=== PATIENT | male | born 1950 | race Caucasian/White ===

== ENCOUNTER 2018-01-04 08:37 | Day surgery (SDC) | payer BC, SELFPAY ==
[2018-01-04] VITALS (7 sets, daily range): BP systolic 130–141; BP diastolic 57–79; PULSE 58–68; RESP 14–16; TEMP 36–36.7; O2SAT 95–100; BMI 35.1
--- NOTE | 2018-01-04 | LES_PTH ---
PATIENT: ROXI WALSH LOC: [facility] – [place] U#:[id number] AGE/SX: 67/M ROOM: RE01/04/[address]: Dr. Jose Bowen MD : 1950 BED: DIS: 01/04/2018 SPEC #: [id number] RECD: 01/04/18 10:43 STATUS: BRITTANIE RENieves #: [id number] VALDO: 01/04/18 00:[address]: Jose Bowen DEPT: SURGICAL PATHOLOGY RECD BY: Neeta Martinez ENTERED: 01/04/18 15:13 SP TYPE: Lesion OTHR DR: Dr. Shahla Carlos MD Tissues: Skin of external ear, NOS Procedures: Frozen Section (charge) Surgery Specimen Level IV Frozen (no charge) HEADER OPERATION: Excision left ear lesion with frozen section and full thickness PRE-OP DIAGNOSIS: Left ear lesion TISSUE SUBMITTED: Left ear lesion sent for FS at 1040 FROZEN SECTION DIAGNOSIS Skin lesion of left ear, biopsy: Actinic change and solar elastosis. AM:nelson 01/04/18 MICROSCOPIC DIAGNOSIS Skin lesion, left ear, biopsy: Actinic keratosis and solar elastosis. Dermal chronic inflammation and focal foreign body giant cell reaction. Negative for malignancy. SJ:nelson 01/05/18 MICROSCOPIC DESCRIPTION Slides are reviewed. GROSS DESCRIPTION Received fresh for frozen section consultation labeled with the patient's name is a specimen designated left ear lesion. The specimen consists of a discoid fragment of pink-go excised skin measuring 5 mm in diameter and 0.1 cm in thickness. The specimen is inked, bisected and submitted in its entirety for frozen section consultation in one block. / AM:nelson 01/04/18 TC:5 CPT: 70199, 00007
[2018-01-04 09:16] LABS: Bedside Glucose 135 mg/dL (70-110)
[2018-01-04] MEDS: Mupirocin Ointment 22gm Tube 1 APPLIC (11:24)
--- NOTE | 2018-01-04 11:27 | PCM.DC ---
You will use the following diet at home:: No restrictions Your food should be the consistency of: Regular Discharge Activity: Return to Normal Activity Call your doctor if your incision/area has: Increased Pain/ Swelling Additional Dressing/Incision Instructions:: bactroban ointment to neck incision and ear graft three times daily. do not get graft wet for 5 days. after 5 days, may wash neck and ear with soap/water and pat dry Allergies/Adverse Reactions: Allergies No Known Allergies Allergy (Verified 12/28/17 09:06) Medications to take at Discharge Aspirin [Aspirin, Baby] 81 mg PO DAILY@0800 01/08/17 Atorvastatin Calcium [Lipitor] 10 mg PO QHS 01/08/17 Metformin HCl [Metformin HCl ER] 1,000 mg PO QHS 01/08/17 Metformin HCl [Metformin HCl ER] 500 mg PO DAILY 01/08/17 Ramipril 5 mg PO DAILY 01/08/17 Sitagliptin Phosphate [Januvia] 100 mg PO DAILY 01/08/17 Acetaminophen/Codeine #3 [Tylenol#3] 1 tab PO Q6H PRN PRN 4 Days #10 tab 01/04/18 The following prescriptions were given: Acetaminophen/Codeine #3 [Tylenol#3] 1 tab PO Q6H PRN PRN 4 Days #10 tab PRN Reason: Pain Primary Care Physician: Shahla Carlos MD [Primary Care Provider] - Please Follow Up With: Pedrito Bowen MD When: 1 week
--- NOTE | 2018-01-04 11:36 | OP.PCM_ITS ---
Problem List (1) Ear lesion Status: Chronic Report of Operation Date of Procedure: 01/04/18 Pre-Operative Diagnosis: left ear lesion Post-Operative Diagnosis: left ear lesion Surgery/Procedure Performed:: 1. excision left ear lesion, 8mm. 2. full thickness skin graft, 1 x 1 cm, left ear Type of Anesthesia:: Local MAC Specimen's removed: left ear lesion Estimated Blood Loss (mL): 1cc Description of Procedure: on the day of the procedure, after appropriate informed consent was obtained, the patient was brought to the operating room and placed in supine position on the operating table. he was placed under sedation and the ear/neck were injected with lidocaine/epinephrine. the ear was prepped and draped in sterile fashion. a pyramid lake blade was used to excise the 8mm lesion. this was sent for frozen section and was negative for carcinoma. the lesion defect was trimmed and the final defect after undermining was 1 x 1 cm. an elliptical incision was made in a left neck crease that measured 1.5 x 1cm. the donor site was undermined and closed with a combination of 3-0 vicryl and 5-0 fast gut. the graft was thinned and trimmed and laid into the defect. this was inset using a combination of 4-0 chromic and 5-0 fast gut. this included a through and through chromic stitch anchoring the pie-crusted graft. due to the size of the defect/graft, a bolster was not placed. mupirocin was placed on the incisions. the patient was awoken from anesthesia and transferred to the PACU in stable condition.
== END 2018-01-04 12:45 | disposition home or self-care (01) ==
LOC: SDC 08:39 → AC 08:41
PROVIDERS: Family Provider Family Medicine; PCP Family Medicine; Visit Provider Otolaryngology
PROC: (CPT 11441; principal; 2018-01-04 10:10)
DX: L57.8 Other skin changes due to chronic exposure to nonionizing radiation (principal); I10 Essential (primary) hypertension; Z79.82 Long term (current) use of aspirin; E78.00 Pure hypercholesterolemia, unspecified; E11.9 Type 2 diabetes mellitus without complications; Z85.828 Personal history of other malignant neoplasm of skin; Z79.84 Long term (current) use of oral hypoglycemic drugs; Z79.899 Other long term (current) drug therapy
CPT/HCPCS: 11441; 15260; 82962; 88305; 88331; J7120; J2405

== ENCOUNTER → 2018-06-07 08:12 | Outpatient (CLI) | payer BC, SELFPAY ==
[2018-06-07 11:15] LABS: AST(SGOT) 18 U/L (15-37); Alanine Aminotransfer ALT/SGPT 28 U/L (16-61); Albumin, Serum 3.7 g/dL (3.2-5.0); Alkaline Phosphatase 94 U/L (45-117); Anion Gap 10 (5-15); BUN 19 mg/dL (7-18); BUN/Creat Ratio 14.2 RATIO (10-20); Bilirubin, Direct 0.11 mg/dL (0.00-0.30); Calcium,Total 8.9 mg/dL (8.5-10.1); Chloride 104 mmol/L (98-107); Cholesterol 142 mg/dL (200); Creatinine, Serum 1.34 mg/dL (0.70-1.30); EST Glomerular Filtration Rate 57 mL/min (>60); Est Glom Filt Rate - Afr Amer 69 mL/min (>60); Globulin 3.6 g/dL (2.2-4.2); Glucose 136 mg/dL (74-106); High Density Lipoprotein 52 mg/dL; PSA,Total - Annual Screen 1.04 ng/mL (0.00-4.00); Potassium 4.4 mmol/L (3.5-5.1); Protein, Total 7.3 g/dL (6.4-8.2); Sodium Level 139 mmol/L (136-145); Triglycerides 110 mg/dL; Very Low Density Lipoprotein 22 mg/dL (5-40)
[2018-06-07 11:22] LABS: Microalbumin,Random Urine 12.9 mg/L (NO RANGE EST.); Microalbumin:Creatinine Ratio 8.6 mg/g CRE (<30 mg/g CRE)
== END ==
PROVIDERS: Family Provider Family Medicine; PCP Family Medicine; Visit Provider Family Medicine
DX: E11.9 Type 2 diabetes mellitus without complications (principal); Z12.5 Encounter for screening for malignant neoplasm of prostate
CPT/HCPCS: 36415; 80048; 80061; 80076; 82043; 82570; 84153; G0103

== ENCOUNTER → 2019-05-30 | Outpatient (CLI) | payer MEDICARE, BC, SELFPAY ==
[2018-06-07 10:41] VITALS: BMI 34.7
[2019-05-30 12:46] LABS: Hemoglobin A1c 7.4 % (4.2-6.3)
[2019-05-30 12:56] LABS: Microalbumin,Random Urine 17.4 mg/L (NO RANGE EST.); Microalbumin:Creatinine Ratio 13.1 mg/g CRE (<30 mg/g CRE)
[2019-05-30 13:03] LABS: AST(SGOT) 14 U/L (15-37); Alanine Aminotransfer ALT/SGPT 27 U/L (16-61); Albumin, Serum 3.5 g/dL (3.2-5.0); Alkaline Phosphatase 83 U/L (45-117); Anion Gap 7 (5-15); BUN 22 mg/dL (7-18); BUN/Creat Ratio 18.6 RATIO (10-20); Bilirubin, Direct 0.09 mg/dL (0.00-0.30); Calcium,Total 8.6 mg/dL (8.5-10.1); Chloride 109 mmol/L (98-107); Cholesterol 142 mg/dL (200); Creatinine, Serum 1.18 mg/dL (0.70-1.30); EST Glomerular Filtration Rate 66 mL/min (>60); Est Glom Filt Rate - Afr Amer 79 mL/min (>60); Globulin 3.6 g/dL (2.2-4.2); Glucose 76 mg/dL (74-106); High Density Lipoprotein 52 mg/dL; Potassium 4.4 mmol/L (3.5-5.1); Protein, Total 7.1 g/dL (6.4-8.2); Sodium Level 144 mmol/L (136-145); Thyroid Stim Hormone (TSH) 2.03 uIU/mL (0.358-3.74); Triglycerides 159 mg/dL; Very Low Density Lipoprotein 32 mg/dL (5-40)
== END | disposition home or self-care (01) ==
LOC: MFPLAB 10:46
PROVIDERS: Family Provider Family Medicine; PCP Family Medicine; Referring Provider Family Medicine; Visit Provider Family Medicine
DX: E11.9 Type 2 diabetes mellitus without complications (principal); E78.00 Pure hypercholesterolemia, unspecified; I10 Essential (primary) hypertension
CPT/HCPCS: 36415; 80048; 80061; 80076; 82043; 82570; 83036; 84443

== ENCOUNTER → 2019-10-19 09:52 | Outpatient (CLI) | payer MEDICARE, BC, SELFPAY ==
[2019-10-11 12:38] VITALS: BMI 34.7
--- NOTE | 2019-10-19 09:54 | ECHOCS_ITS ---
Reason For Study: ARRHYTHMIA Procedure This was a 2D Doppler, Color Flow transthoracic echocardiogram. The study was technically difficult. Contrast injection was performed. Exam performed in department. Left Ventricle Normal LV size. Left ventricular systolic function is normal. The estimated ejection fraction is 60 %. Stage 1 diastolic dysfunction. No regional wall motion abnormalities noted. Right Ventricle Normal RV size. Normal systolic function. Atria Normal left atrium. Normal right atrium. Mitral Valve Normal mitral valve. Tricuspid Valve Normal tricuspid valve. Mild tricuspid valve insufficiency. Pulmonary artery systolic pressure is 34 mmHg. Aortic Valve Trisinus/trileaflet aortic valve. Pulmonic Valve Normal pulmonic valve. Great Vessels Normal aortic root. The pulmonary artery is normal size. Normal inferior vena cava. Pericardium/Pleural No pericardial effusion. Medication 22 gauge I.V. with prn adaptor inserted into right arm. Diluted definity 4.0ml given slow IV push to enhance endocardial definition. MMode/2D Measurements & Calculations LVIDd: 5.3 cm IVSd: 1.2 cm Ao root diam: 3.6 cm LVIDs: 3.5 cm LVPWd: 1.3 cm RVDd: 3.5 cm FS: 33.5 % LAV(MOD-bp): 59.7 ml EDV(MOD-sp4): 117.8 ml EDV(MOD-sp2): 128.2 ml LAV(MOD-bp) Indexed: 27.4 ml/m2 ESV(MOD-sp4): 44.6 ml EF(MOD-sp2): 63.4 % LAV(MOD-sp2): 60.3 ml EF(MOD-sp4): 62.2 % LAV(MOD-sp4): 58.4 ml SV(MOD-sp4): 73.2 ml SV(MOD-sp2): 81.3 ml LA A4 area: 20.4 cm2 LA dimension(2D): 3.5 cm RA A4 area: 13.1 cm2 Time Measurements MV dec time: 0.34 sec Doppler Measurements & Calculations MV E max earl: 71.0 cm/sec Lat Peak E' Earl: 10.2 cm/sec Med Peak E' Earl: 6.6 cm/sec MV A max earl: 62.7 cm/sec E/E' lat: 7.0 E/E' med: 10.8 MV E/A: 1.1 Ao V2 max: 140.6 cm/sec LV V1 max: 120.2 cm/sec TR max earl: 265.9 cm/sec Ao max P.9 mmHg LV V1 max P.8 mmHg TR max P.8 mmHg Interpretation Summary Normal LV size. Left ventricular systolic function is normal. The estimated ejection fraction is 60 %. Mild tricuspid valve insufficiency. Pulmonary artery systolic pressure is 34 mmHg. Stage 1 diastolic dysfunction. Contrast injection was performed. Ordering Physician: Isidoro Jay Referring Physician: CARL FRANK Performed By: Mckenna Odonnell, JESSICA, RVT
== END ==
PROVIDERS: PCP Family Medicine; Referring Provider Internal Medicine Cardiovascular Disease; Visit Provider Internal Medicine Cardiovascular Disease
DX: I49.1 Atrial premature depolarization (principal)
CPT/HCPCS: 93306; Q9957; A4216; C8929

== ENCOUNTER → 2019-11-28 10:52 | Outpatient (CLI) | payer MEDICARE, BC, SELFPAY ==
[2019-10-11 12:38] VITALS: BMI 34.7
[2019-11-28 13:10] LABS: Anion Gap 7 (5-15); BUN 17 mg/dL (7-18); BUN/Creat Ratio 14.5 RATIO (10-20); Chloride 105 mmol/L (98-107); Creatinine, Serum 1.17 mg/dL (0.70-1.30); EST Glomerular Filtration Rate 66 mL/min (>60); Est Glom Filt Rate - Afr Amer 80 mL/min (>60); Glucose 113 mg/dL (74-106); Potassium 4.3 mmol/L (3.5-5.1); Sodium Level 141 mmol/L (136-145)
== END ==
PROVIDERS: PCP Family Medicine; Referring Provider Family Medicine; Visit Provider Family Medicine
DX: E11.9 Type 2 diabetes mellitus without complications (principal)
CPT/HCPCS: 36415; 80048

== ENCOUNTER → 2020-06-14 10:14 | Outpatient (CLI) | payer MEDICARE, BC, SELFPAY ==
[2019-10-11 12:38] VITALS: BMI 34.7
[2020-06-14 12:38] LABS: Microalbumin,Random Urine 18.9 mg/L (NO RANGE EST.)
[2020-06-14 13:04] LABS: AST(SGOT) 12 U/L (15-37); Alanine Aminotransfer ALT/SGPT 26 U/L (16-61); Albumin, Serum 3.8 g/dL (3.2-5.0); Alkaline Phosphatase 77 U/L (45-117); Anion Gap 5 (5-15); BUN 22 mg/dL (7-18); BUN/Creat Ratio 17.7 RATIO (10-20); Bilirubin, Direct 0.17 mg/dL (0.00-0.30); Calcium,Total 8.9 mg/dL (8.5-10.1); Chloride 105 mmol/L (98-107); Cholesterol 148 mg/dL (200); Creatinine, Serum 1.24 mg/dL (0.70-1.30); EST Glomerular Filtration Rate 62 mL/min (>60); Est Glom Filt Rate - Afr Amer 75 mL/min (>60); Globulin 3.5 g/dL (2.2-4.2); Glucose 106 mg/dL (74-106); High Density Lipoprotein 56 mg/dL; PSA,Total - Annual Screen 1.28 ng/mL (0.00-4.00); Potassium 4.3 mmol/L (3.5-5.1); Protein, Total 7.3 g/dL (6.4-8.2); Sodium Level 140 mmol/L (136-145); Triglycerides 78 mg/dL; Very Low Density Lipoprotein 16 mg/dL (5-40)
== END ==
PROVIDERS: PCP Family Medicine; Referring Provider Family Medicine; Visit Provider Family Medicine
DX: Z00.00 Encounter for general adult medical examination without abnormal findings (principal); E11.9 Type 2 diabetes mellitus without complications; I10 Essential (primary) hypertension; Z12.5 Encounter for screening for malignant neoplasm of prostate
CPT/HCPCS: 36415; 80048; 80061; 80076; 82043; 82570; 84153; G0103

== ENCOUNTER → 2020-12-04 09:44 | Outpatient (CLI) | payer MEDICARE, BC, SELFPAY ==
[2019-10-11 12:38] VITALS: BMI 34.7
[2020-12-04 12:51] LABS: BUN 23 mg/dL (7-18); Creatinine, Serum 1.36 mg/dL (0.70-1.30); Glucose 110 mg/dL (74-106)
[2020-12-04 12:52] LABS: Anion Gap 6 (5-15); BUN/Creat Ratio 16.9 RATIO (10-20); Calcium,Total 9.2 mg/dL (8.5-10.1); Chloride 105 mmol/L (98-107); EST Glomerular Filtration Rate 55 mL/min (>60); Est Glom Filt Rate - Afr Amer 67 mL/min (>60); Potassium 4.9 mmol/L (3.5-5.1); Sodium Level 139 mmol/L (136-145)
== END ==
PROVIDERS: PCP Family Medicine; Referring Provider Family Medicine; Visit Provider Family Medicine
DX: I10 Essential (primary) hypertension (principal)
CPT/HCPCS: 36415; 80048

== ENCOUNTER → 2021-06-16 14:40 | Outpatient (CLI) | payer MEDICARE, BC, SELFPAY ==
[2021-06-16 18:38] LABS: Anion Gap 6 (5-15); BUN 25 mg/dL (7-18); BUN/Creat Ratio 17.9 RATIO (10-20); Calcium,Total 9.3 mg/dL (8.5-10.1); Chloride 107 mmol/L (98-107); EST Glomerular Filtration Rate 53 mL/min (>60); Est Glom Filt Rate - Afr Amer 65 mL/min (>60); Glucose 80 mg/dL (74-106); Potassium 4.1 mmol/L (3.5-5.1); Sodium Level 140 mmol/L (136-145)
== END ==
PROVIDERS: PCP Family Medicine; Visit Provider Family Medicine
DX: I10 Essential (primary) hypertension (principal)
CPT/HCPCS: 36415; 80048

== ENCOUNTER → 2021-09-02 17:49 | Outpatient (CLI) | payer MEDICARE, BC, SELFPAY | PROVIDERS: PCP Family Medicine; Referring Provider Nurse Practitioner Family; Visit Provider Nurse Practitioner Family | DX: U07.1 COVID-19 (principal) | CPT/HCPCS: 87633; 87635; U0005; U0003 ==

== ENCOUNTER → 2022-06-22 | Outpatient (CLI) | payer MEDICARE, BC, SELFPAY ==
[2022-06-22 18:31] LABS: AST(SGOT) 15 U/L (15-37); Alanine Aminotransfer ALT/SGPT 24 U/L (16-61); Albumin, Serum 3.6 g/dL (3.2-5.0); Alkaline Phosphatase 94 U/L (45-117); Anion Gap 8 (5-15); BUN 20 mg/dL (7-18); BUN/Creat Ratio 14.9 RATIO (10-20); Bilirubin, Direct < 0.05 mg/dL (0.00-0.30); Calcium,Total 9.4 mg/dL (8.5-10.1); Chloride 104 mmol/L (98-107); Cholesterol 155 mg/dL (200); Creatinine, Serum 1.34 mg/dL (0.70-1.30); EST Glomerular Filtration Rate 56 mL/min (>60); Est Glom Filt Rate - Afr Amer 68 mL/min (>60); Globulin 3.8 g/dL (2.2-4.2); Glucose 101 mg/dL (74-106); High Density Lipoprotein 56 mg/dL; PSA,Total - Annual Screen 2.41 ng/mL (0.00-4.00); Potassium 4.8 mmol/L (3.5-5.1); Protein, Total 7.4 g/dL (6.4-8.2); Sodium Level 141 mmol/L (136-145); Triglycerides 120 mg/dL; Very Low Density Lipoprotein 24 mg/dL (5-40)
== END | disposition home or self-care (01) ==
LOC: MFPLAB 15:43
PROVIDERS: PCP Family Medicine; Referring Provider Family Medicine; Visit Provider Family Medicine
DX: E11.9 Type 2 diabetes mellitus without complications (principal); Z12.5 Encounter for screening for malignant neoplasm of prostate
CPT/HCPCS: 36415; 80048; 80061; 80076; 84153; G0103

== ENCOUNTER → 2022-11-25 | Outpatient (CLI) | payer MEDICARE, BC, SELFPAY ==
[2022-11-25 13:00] LABS: AST(SGOT) 19 U/L (15-37); Alanine Aminotransfer ALT/SGPT 25 U/L (16-61); Albumin, Serum 3.8 g/dL (3.2-5.0); Alkaline Phosphatase 86 U/L (45-117); Anion Gap 8 (5-15); BUN 21 mg/dL (7-18); BUN/Creat Ratio 16.2 RATIO (10-20); Bilirubin, Direct 0.09 mg/dL (0.00-0.30); Calcium,Total 9.4 mg/dL (8.5-10.1); Chloride 105 mmol/L (98-107); Cholesterol 158 mg/dL (200); EST Glomerular Filtration Rate 58 mL/min (>60); Est Glom Filt Rate - Afr Amer 70 mL/min (>60); Globulin 3.5 g/dL (2.2-4.2); Glucose 123 mg/dL (74-106); High Density Lipoprotein 58 mg/dL; Potassium 4.3 mmol/L (3.5-5.1); Protein, Total 7.3 g/dL (6.4-8.2); Sodium Level 141 mmol/L (136-145); Triglycerides 174 mg/dL; Very Low Density Lipoprotein 35 mg/dL (5-40)
== END | disposition home or self-care (01) ==
LOC: MFPLAB 10:30
PROVIDERS: PCP Family Medicine; Referring Provider Family Medicine; Visit Provider Family Medicine
DX: E11.9 Type 2 diabetes mellitus without complications (principal)
CPT/HCPCS: 36415; 80048; 80061; 80076

== ENCOUNTER → 2023-07-06 | Outpatient (CLI) | payer MEDICARE, BC, SELFPAY | END | disposition home or self-care (01) | LOC: MFPLAB 11:51 | PROVIDERS: PCP Family Medicine; Visit Provider Family Medicine | DX: Z12.5 Encounter for screening for malignant neoplasm of prostate (principal) | CPT/HCPCS: 36415; 84153; G0103 ==

== ENCOUNTER → 2023-09-17 | Outpatient (CLI) | payer MEDICARE, BC, SELFPAY ==
--- NOTE | 2023-09-17 10:21 | RAD_ITS ---
STUDY: X-RAY - LEFT SHOULDER REASON FOR EXAM: Male, 73 years old. Shoulder injury -- room 1 NOW TECHNIQUE: 4 view(s) of the shoulder. COMPARISON: None. FINDINGS: Normal glenohumeral articulation. There is hypertrophic osteoarthrosis of the acromioclavicular joint with inferior osseous spur formation. Normal acromion. Normal humeral head and visualized proximal humerus. The soft tissue structures are unremarkable. Normal visualized pulmonary apex. RAD/Shoulder min 2 Views IMPRESSION: Degenerative changes of the acromioclavicular joint. Electronically Signed: Austyn Johansen MD at 12:07 EST ,
== END | disposition home or self-care (01) ==
PROVIDERS: PCP Family Medicine; Referring Provider Physician Assistant Surgical; Visit Provider Physician Assistant Surgical
DX: S49.90XA Unspecified injury of shoulder and upper arm, unspecified arm, initial encounter (principal)
CPT/HCPCS: 73030

== ENCOUNTER → 2023-10-01 | Outpatient (CLI) | payer MEDICARE, BC, SELFPAY ==
[2023-10-01 15:59] LABS: AST(SGOT) 16 U/L (15-37); Alanine Aminotransfer ALT/SGPT 25 U/L (16-61); Albumin, Serum 3.4 g/dL (3.2-5.0); Alkaline Phosphatase 81 U/L (45-117); Anion Gap 6 (5-15); BUN 25 mg/dL (7-18); BUN/Creat Ratio 17.2 RATIO (10-20); Bilirubin, Direct 0.07 mg/dL (0.00-0.30); Calcium,Total 8.5 mg/dL (8.5-10.1); Chloride 107 mmol/L (98-107); Cholesterol 132 mg/dL (200); Creatinine, Serum 1.45 mg/dL (0.70-1.30); EST Glomerular Filtration Rate 51 mL/min (>60); Est Glom Filt Rate - Afr Amer 62 mL/min (>60); Globulin 3.3 g/dL (2.2-4.2); Glucose 147 mg/dL (74-106); High Density Lipoprotein 50 mg/dL; Potassium 4.4 mmol/L (3.5-5.1); Protein, Total 6.7 g/dL (6.4-8.2); Sodium Level 138 mmol/L (136-145); Thyroid Stim Hormone (TSH) 1.76 uIU/mL (0.358-3.74); Triglycerides 174 mg/dL; Very Low Density Lipoprotein 35 mg/dL (5-40)
== END | disposition home or self-care (01) ==
LOC: MFPLAB 11:34
PROVIDERS: PCP Family Medicine; Visit Provider Family Medicine
DX: E11.59 Type 2 diabetes mellitus with other circulatory complications (principal); E78.5 Hyperlipidemia, unspecified
CPT/HCPCS: 36415; 80048; 80061; 80076; 82043; 84443

== ENCOUNTER → 2024-10-03 | Outpatient (CLI) | payer MEDICARE, BC, SELFPAY ==
[2024-10-03 15:59] LABS: AST(SGOT) 15 U/L (15-37); Alanine Aminotransfer ALT/SGPT 32 U/L (16-61); Albumin, Serum 3.6 g/dL (3.2-5.0); Alkaline Phosphatase 89 U/L (45-117); Anion Gap 6 (5-15); BUN 24 mg/dL (7-18); BUN/Creat Ratio 17.5 RATIO (10-20); Bilirubin, Direct 0.13 mg/dL (0.00-0.30); Calcium,Total 9.5 mg/dL (8.5-10.1); Chloride 105 mmol/L (98-107); Cholesterol 153 mg/dL (200); Creatinine, Serum 1.37 mg/dL (0.70-1.30); EST Glomerular Filtration Rate 54 mL/min (>60); Est Glom Filt Rate - Afr Amer 66 mL/min (>60); Globulin 3.3 g/dL (2.2-4.2); Glucose 181 mg/dL (74-106); High Density Lipoprotein 59 mg/dL; PSA,Total - Annual Screen 1.73 ng/mL (0.00-4.00); Potassium 4.7 mmol/L (3.5-5.1); Protein, Total 6.9 g/dL (6.4-8.2); Sodium Level 138 mmol/L (136-145); Triglycerides 118 mg/dL; Very Low Density Lipoprotein 24 mg/dL (5-40)
[2024-10-03 16:01] LABS: Protein, Urine (Random) 9.9 mg/dL (<11.9); Protein:Creat Ratio 162 mg/g CRE (0-200)
== END | disposition home or self-care (01) ==
LOC: MFPLAB 11:18
PROVIDERS: PCP Family Medicine; Referring Provider Family Medicine; Visit Provider Family Medicine
DX: E11.69 Type 2 diabetes mellitus with other specified complication (principal); Z12.5 Encounter for screening for malignant neoplasm of prostate
CPT/HCPCS: 36415; 80048; 80061; 80076; 82570; 84153; 84156; 84443; G0103

== ENCOUNTER → 2025-04-27 | Outpatient (CLI) | payer MEDICARE, BC, SELFPAY ==
--- NOTE | 2025-04-27 11:28 | RAD_ITS ---
PROCEDURE: SHOULDER MIN 2 VIEWS 04/27/2025 REASON FOR EXAM: PAIN, INJURY TECHNIQUE: Four view left shoulder series. COMPARISON: Left shoulder study of 09/17/2023 RAD/Shoulder min 2 Views IMPRESSION: Moderate to moderately severe left acromioclavicular joint degenerative changes are seen, with associated marked joint narrowing. Left glenohumeral joint demonstrates mild degenerative changes, without signifi cant associated joint narrowing. No acute fracture or dislocation is seen. If clinical concern persists, short- term follow-up imaging may be obtained to rule out a currently occult fracture. Reading Location: [place] [id number]
== END | disposition home or self-care (01) ==
LOC: MTRAD 11:02
PROVIDERS: PCP Family Medicine; Referring Provider Family Medicine; Visit Provider Family Medicine
DX: S49.92XA Unspecified injury of left shoulder and upper arm, initial encounter (principal)
CPT/HCPCS: 73030

== ENCOUNTER → 2025-07-03 | Outpatient (CLI) | payer MEDICARE, BC, SELFPAY ==
[2025-07-03 15:29] LABS: AST(SGOT) 20 U/L (<=37); Alanine Aminotransfer ALT/SGPT 19 U/L (<=46); Albumin, Serum 4.4 g/dL (3.4-4.8); Alkaline Phosphatase 82 U/L (40-129); Anion Gap 12 (5-15); BUN 26 mg/dL (4-19); BUN/Creat Ratio 19.9 RATIO (10-20); Calcium,Total 9.8 mg/dL (7.6-11.0); Carbon Dioxide 25.4 mmol/L (21.0-32.0); Chloride 103 mmol/L (98-108); Globulin 2.8 g/dL (2.2-4.2); Glucose 105 mg/dL (70-99); Potassium 4.4 mmol/L (3.3-5.1)
[2025-07-03 15:32] LABS: Creatinine, Urine (random) 101.00 mg/dL (39.00-259.00); Microalbumin,Random Urine 14.4 mg/L (<20 mg/L)
== END | disposition home or self-care (01) ==
LOC: MTLAB 11:24
PROVIDERS: PCP Family Medicine; Referring Provider Family Medicine; Visit Provider Family Medicine
DX: B35.1 Tinea unguium (principal)
CPT/HCPCS: 36415; 80053; 82043; 82570